=== PATIENT | female | born 1965 | race Two or more races ===

== ENCOUNTER 2017-12-01 05:57 | Inpatient (IN) | payer BC ==
[2017-11-16 16:28] VITALS: BMI 31.9
--- NOTE | 2017-11-30 21:00 | HP ---
Admitting History and Physical - Admission Chief Complaint: Right hip osteoarthritis x years History of Present Illness: 52 year old female presents today in regard to her right hip. Patient has a longstanding history of right hip osteoarthritis. Patient complains of pain, limited ROM, difficulty ambulating and difficulty completing activities of daily living. Patient has failed conservative treatment options including PO medications, activity modification, injections and exercise program. At this point, patient wishes to proceed with surgical intervention - right total hip arthroplasty, MAKOplasty. History Source: Patient - Past Medical History Cardiovascular: Yes: HTN ...LMP Comment: 10 YEARS AGO - Past Surgical History Additional Past Surgical History: See written history and physical. - Smoking History Smoking history: Never smoked Have you smoked in the past 12 months: No - Alcohol/Substance Use Hx Alcohol Use: Yes (FEW TIMES PER WEEK) Home Medications - Allergies Allergies/Adverse Reactions: Allergies Allergy/AdvReac Type Severity Reaction Status Date / Time No Known Allergies Allergy Verified 11/16/17 16:18 - Home Medications Home Medications: Ambulatory Orders Amlodipine Besylate 5 mg PO HS 11/16/17 Cholecalciferol (Vitamin D3) [Vitamin D3] 1,000 unit PO DAILY 11/16/17 Multivit-Min/Iron/Folic/Axe667 [Hair, Skin and Nails Tablet] 1 each PO DAILY 11/28 Ubidecarenone [Co Q-10] 50 mg PO DAILY 11/16/17 Review of Systems - Review of Systems Musculoskeletal: reports: Decreased ROM (right hip), Joint Pain (right hip), Joint Swelling (right hip) Physical Examination Constitutional: Yes: Well Nourished, No Distress Eyes: Yes: Conjunctiva Clear HENT: Yes: Atraumatic, Normocephalic Neck: Yes: Supple Cardiovascular: Yes: Regular Rate and Rhythm Respiratory: Yes: Regular Gastrointestinal: Yes: Soft ...Rectal Exam: Yes: Deferred Musculoskeletal: Yes: Joint Stiffness (right hip), Joint Swelling (right hip) Assessment/Plan 52 year old female presents today in regard to her right hip. Patient has a longstanding history of right hip osteoarthritis. Patient complains of pain, limited ROM, difficulty ambulating and difficulty completing activities of daily living. Patient has failed conservative treatment options including PO medications, activity modification, injections and exercise program. At this point, patient wishes to proceed with surgical intervention. Pros, cons, risks benefits and alternatives of a right total hip arthroplasty, MAKOplasty was discussed at length. Patient confirms her understanding and consents to proceed with a right total hip arthroplasty, MAKOplasty.
[~2017-12-01 05:57] MED LIST: CEFAZOLIN 2 GM/D5W 2 GM/50 ML ML IVPB ONE; CELECOXIB 200 MG CAPSULE PO ONE; GABAPENTIN 300 MG CAPSULE (FP) PO ONE; PANTOPRAZOLE 40 MG TABLET (FP) PO ONE; ROPIVICAINE 0.2%/MORPH PF/KETOROLAC - 51ML DISP.SYRINGE IA ONE; TRANEXAMIC ACID 1000 MG/10 ML VIAL IVPUSH ONE; oxyCODONE HCL 10 MG SUSTAINED ACTING TABLET PO ONE
[2017-12-01] MEDS ORDERED: oxyCODONE HCL 10 MG SUSTAINED ACTING TABLET ONE (06:47)
[2017-12-01] MEDS ORDERED: GABAPENTIN 300 MG CAPSULE (FP) ONE (06:48)
[2017-12-01] MEDS ORDERED: CELECOXIB 200 MG CAPSULE ONE (06:48)
[2017-12-01] MEDS ORDERED: PROPOFOL 20 ML ONE ×3 (07:05→11:19)
[2017-12-01] MEDS ORDERED: SUCCINYLCHOLINE CHLORIDE 200 MG/10 ML VIAL ONE (07:05)
[2017-12-01] MEDS ORDERED: MIDAZOLAM HCL 2 MG/2 ML SINGLE DOSE VIAL ONE ×2 (07:07→07:13)
[2017-12-01] MEDS ORDERED: BUPIVACAINE HCL/PF (5 MG/ML) 30 ML VIAL IJ ONE (07:13)
[2017-12-01] MEDS ORDERED: ePHEDrine SULFATE 50 MG/1 ML AMPULE ONE (07:13)
[2017-12-01] MEDS ORDERED: EPINEPHrine/PF 1 MG/1 ML (1:1,000) AMPULE ONE (07:13)
[2017-12-01] MEDS ORDERED: DEXAMETHASONE SOD PHOSPHATE/PF 10 MG/ML SDV ONE (07:13)
[2017-12-01] MEDS ORDERED: LIDOCAINE 1% P/F 10 MG/ML VIAL ONE (07:33)
[2017-12-01] MEDS ORDERED: PROMETHAZINE HCL 25 MG/1 ML VIAL IVPB PRN (07:51)
[2017-12-01] MEDS ORDERED: ceFAZolin SODIUM 1 GM VIAL IVPB ONE (09:09)
[2017-12-01] MEDS ORDERED: ONDANSETRON 4 MG/2 ML VIAL IVPUSH PRN (11:00)
[2017-12-01] MEDS ORDERED: MAGNESIUM HYDROX 2400MG/30ML ORAL SUSPENSION 30 ML CUP PO PRN (11:00)
[2017-12-01] MEDS ORDERED: MAG HYDROX/AL HYDROX/SIMETH 30 ML UNIT-DOSE CUP PO PRN (11:00)
[2017-12-01] MEDS ORDERED: LACTATED RINGERS SOLUTION 1,000 ML IV SCH (11:00)
[2017-12-01] MEDS ORDERED: ACETAMINOPHEN 1000 MG/100 ML VIAL (NON FORMULARY) IVPB ONE ×3 (11:01→12:15)
--- NOTE | 2017-12-01 11:03 | OP ---
Operative Note - Note: Operative Date: 12/01/17 Pre-Operative Diagnosis: Right hip OA Operation: Right FOSTER ERIN Post-Operative Diagnosis: Same as Pre-op Surgeon: Ralph Flood Glaze Maker: Adelia Davis Anesthesia: Spinal Estimated Blood Loss (mls): 200
[2017-12-01] MEDS ORDERED: KETOROLAC TROMETHAMINE 30 MG/1 ML VIAL IVPUSH SCH (11:15)
[2017-12-01] MEDS ORDERED: KETOROLAC TROMETHAMINE 30 MG/1 ML VIAL ONE (11:56)
[2017-12-01] MEDS ORDERED: traMADol HCL 50 MG TABLET ONE (11:56)
[2017-12-01] MEDS ORDERED: ACETAMINOPHEN INJECTION 100 ML IVPB ONE (11:56)
[2017-12-01] MEDS: oxyCODONE HCL 5 MG TABLET PO PRN (18:33)
[2017-12-01] MEDS: KETOROLAC TROMETHAMINE 30 MG/1 ML VIAL IVPUSH SCH ×2 (18:33→23:53)
[2017-12-01] MEDS: traMADol HCL 50 MG TABLET PO SCH ×2 (18:34→23:52)
[2017-12-01] MEDS: CEFAZOLIN 2 GM/D5W 2 GM/50 ML ML IVPB SCH (18:34)
[2017-12-01] MEDS ORDERED: DEXAMETHASONE SOD PHOSPHATE 10 MG/1 ML VIAL IVPB ONE (20:00)
[2017-12-01] MEDS: amLODIPine BESYLATE 5 MG TABLET (FP) PO SCH (21:26)
[2017-12-01] MEDS: CELECOXIB 200 MG CAPSULE PO SCH (21:26)
[2017-12-01] MEDS: ASCORBIC ACID 500 MG TABLET (FP) PO SCH (21:26)
[2017-12-01] MEDS: GABAPENTIN 300 MG CAPSULE (FP) PO SCH (21:26)
[2017-12-01] MEDS: SENNOSIDES/DOCUSATE COMBO (SENNA PLUS) TABLET (UD) PO SCH (21:26)
[2017-12-02] MEDS: CEFAZOLIN 2 GM/D5W 2 GM/50 ML ML IVPB SCH (01:36)
[2017-12-02] MEDS: traMADol HCL 50 MG TABLET PO SCH ×5 (05:30→23:29)
[2017-12-02] MEDS: KETOROLAC TROMETHAMINE 30 MG/1 ML VIAL IVPUSH SCH ×2 (05:30→12:02)
[2017-12-02] MEDS: oxyCODONE HCL 5 MG TABLET PO PRN ×2 (05:31→09:30)
[2017-12-02] MEDS: ASPIRIN 325 MG TABLET PO SCH (08:00)
[2017-12-02 09:00] LABS: HEMATOCRIT 33.5 % (32.4-45.2); HEMOGLOBIN 11.7 GM/dl (10.7-15.3); MCH 31.9 pg (25.7-33.7); MEAN PLT VOLUME 9.9 fl (7.5-11.1); PLATELET COUNT 229 K/MM3 (134-434); RBC 3.68 M/mm3 (3.60-5.2); RDW 13.1 % (11.6-15.6)
[2017-12-02 09:14] LABS: ANION GAP 7 (8-16); BLOOD UREA NITROGEN 15 mg/dl (7-18); CALCIUM 8.7 mg/dl (8.4-10.2); CHLORIDE 103 mmol/L (98-107); CO2 23 mmol/L (22-28); CREATININE 0.7 mg/dl (0.6-1.3); GLUCOSE,RANDOM 137 mg/dl (74-106); POTASSIUM 4.1 mmol/L (3.5-5.1); SODIUM 133 mmol/L (136-145)
--- NOTE | 2017-12-02 09:35 | PN ---
Progress Note (short form) - Note Progress Note: Anesthesia Post-Op Note Pt s/p right THR with Dr. Flood on 12/01/17. Pt received PNB + Spinal + MAC. Reports pain controlled. OOB to chair and ambulating with PT. Tolerating PO diet. Vital Signs Temperature 98.1 F 12/02/17 06:00 Pulse Rate 68 12/02/17 06:00 Respiratory Rate 18 12/02/17 09:00 Blood Pressure 129/73 12/02/17 06:00 O2 Sat by Pulse Oximetry (%) 95 12/01/17 12:59 Continue ISS. Encourage ambulation. Bowel regimen.
[2017-12-02] MEDS: SENNOSIDES/DOCUSATE COMBO (SENNA PLUS) TABLET (UD) PO SCH ×2 (10:00→22:05)
[2017-12-02] MEDS: GABAPENTIN 300 MG CAPSULE (FP) PO SCH ×2 (10:00→22:05)
[2017-12-02] MEDS: CELECOXIB 200 MG CAPSULE PO SCH ×2 (10:01→22:04)
[2017-12-02] MEDS: PANTOPRAZOLE 40 MG TABLET (FP) PO SCH (10:01)
[2017-12-02] MEDS: ASCORBIC ACID 500 MG TABLET (FP) PO SCH ×2 (10:01→22:05)
[2017-12-02] MEDS: MULTIVITAMINS (DAILY MVI) TABLET (FP) PO SCH (10:01)
--- NOTE | 2017-12-02 17:32 | SPEC ---
DATE OF OPERATION: 12/01/2017 PREOPERATIVE DIAGNOSIS: Right hip osteoarthritis. POSTOPERATIVE DIAGNOSIS: Right hip osteoarthritis. PROCEDURE: Right total hip replacement with MAKOplasty robotic navigation. ATTENDING: Bull Wang MD CLOTH BURLER: NAZANIN Pinon ANESTHESIA: Spinal plus sedation. ESTIMATED BLOOD LOSS: 200 mL COMPLICATIONS: None. DISPOSITION: The patient was transferred to the PACU in stable condition. IMPLANTS USED: [place] Accolade II size 7 femoral component, Zoila Tritanium 54-mm acetabular component with MDM bipolar head ball and liner, MDM inner ceramic head ball size 28 plus 4 mm and 25, 30-mm acetabular screws. INDICATIONS: This is a 52-year-old female who presented to the office complaining of severe right hip pain. She was seen and examined by Dr. Wang and diagnosed with severe right hip osteoarthritis. The patient was initially treated nonoperatively with injections, medications, and physical therapy but continued to have severe right hip pain and ambulatory dysfunction. She was, therefore, indicated for a right total hip replacement with MAKOplasty robotic navigation. The risks, benefits, and alternatives to the surgery were explained to the patient in great detail, and she elected to proceed with the procedure. On the day of surgery, the patient was taken to the operating room and placed on the OR table. Spinal anesthesia was administered by the anesthesiologist. The patient was then positioned in the lateral decubitus position on the table and all bony prominences were padded. An axillary roll was placed. The operative hip was then prepped and draped in the usual sterile fashion and intravenous antibiotics were given for infection prophylaxis. A surgical time-out was then performed with the team, and the patients identity, procedure, side, availability of implants, and the administration of antibiotics were confirmed. An approximately 15-cm longitudinal incision was made through the skin centered on the greater trochanter of the hip. This dissection was carried down through the subcutaneous tissues to the deep fascia. This fascia was then incised and a Cobra was placed around the inferior femoral neck. Electrocautery was used to reflect the anterior 40% of the gluteus medius and minimus starting at the musculotendinous junction and leaving a cuff for closure. This was reflected to reveal the capsule of the hip joint. An anterior capsulectomy was performed and the femoral head and neck were visualized. Grade 4 changes were noted diffusely throughout the joint. At this point, three small stab incisions were made superior to the main incision along the iliac crest. Three self-drilling Steinmann pins were then placed and the MVERSE pelvic array was attached. Reference points on the limb were then entered into the robotic device and the limb length deficiency, offset, and femoral neck resection level were then calculated by the software. The hip was then dislocated with traction and external rotation. An oscillating saw was used to make the femoral neck cut at the level previously templated, and the femoral head was removed. Attention was then turned to the acetabulum. Retractors were then placed around the acetabulum and the labrum was removed. An acetabular checkpoint pin and the MVERSE software were used to register the contours of the acetabulum. The acetabulum was then reamed in a single stage to the preoperatively templated size using the Dalton robotic arm. The appropriately sized cup was then impacted and had solid fixation as well as the preset inclination and version of 40 and 20 degrees, respectively. A polyethylene liner was then placed in the cup. Attention was then turned back to the femur, which was externally rotated for improved visualization. A femoral neck elevator was used to present the femoral neck cut, a box osteotome was used to enter the femoral canal, and a canal finder was used to go down the femoral shaft. The Dalton broaches were used sequentially until the optimal scratch fit was achieved. This correlated with the preoperatively templated size. From here, several different offset head and neck configurations were tested until excellent stability and length were obtained. These measurements were quantified using the MVERSE software. All trial components were then removed, the femur was copiously irrigated, and the final components were placed. Leg length and stability were checked again and found to be excellent. Irrigation was performed again. Wound closure was started by repairing the abductor muscles with a no. 2 FiberWire stitch in a Krackow configuration passed through bone tunnels in the greater trochanter and tied over a bony bridge. This repair was then reinforced with a 0 V-Loc 180 barbed suture. Next, no. 1 Polysorb and 0 V-Loc 180 were used to close the fascia. The deep subcutaneous tissue was closed with no. 1 Polysorb sutures, and 2-0 Polysorb was used for the superficial subcutaneous tissue. The skin was closed using both 3-0 V-Loc 90 suture in a running subcuticular fashion and SwiftSet skin adhesive. The Dalton array and pins were removed from the iliac crest and the stab incision sites were irrigated and closed with 4-0 Polysorb sutures and SwiftSet skin adhesive. Once this was completed, a sterile dressing was applied. The patient was then awakened and taken to the PACU in stable condition. ADDENDUM: After final implants were placed, a 3-minute dilute Betadine lavage was performed. Following this, the wound was thoroughly irrigated with normal saline, and wound closure was begun. BULL WANG M.D. [id number]
--- NOTE | 2017-12-02 22:00 | PN ---
Progress Note (short form) - Note Progress Note: Pt seen and examined. Doing well. AVSS Selected Entries 12/02/17 14:00 Temperature 98.0 F Pulse Rate 68 Respiratory 17 Rate Blood Pressure 130/70 O2 Sat by Pulse 98 Oximetry (%) Laboratory Tests 12/02/17 12/02/17 08:00 08:47 WBC 8.0 Hgb 11.7 Hct 33.5 Plt Count 229 Sodium 133 L Potassium 4.1 Chloride 103 Carbon Dioxide 23 Anion Gap 7 L BUN 15 Creatinine 0.7 Creat Clearance w eGFR > 60 Random Glucose 137 H Calcium 8.7 Gen: NAD RLE: c/d/i, NVID A/P s/p R ERIN D/C in AM after PT
[2017-12-02] MEDS: amLODIPine BESYLATE 5 MG TABLET (FP) PO SCH (22:05)
--- NOTE | 2017-12-02 22:12 | DS ---
Physical Examination Vital Signs: Vital Signs Temperature 98.0 F 12/02/17 14:00 Pulse Rate 68 12/02/17 14:00 Respiratory Rate 17 12/02/17 14:00 Blood Pressure 130/70 12/02/17 14:00 O2 Sat by Pulse Oximetry (%) 98 12/02/17 14:00 Labs: CBC, BMP 12/02/17 08:00 12/02/17 08:47 Discharge Summary Reason For Visit: RIGHT HIP OSTEOARTHRITIS Current Active Problems Osteoarthritis of right hip (Acute) Procedures: Principal: right ERIN [facility] Course: Admitted for elective surgery. Procedure performed without complications. Pt received postoperative antibiotic prophylaxis and DVT ppx. Ambulated with physical therapy. Stable for discharge home with outpatient followup. Condition: Stable - Instructions Diet, Activity, Other Instructions: Dr Flood - Hip Replacement Instructions Keep the Aquacel dressing on until removed by Dr. Flood in 10-14 days - it is antibacterial and waterproof and you can shower with it on. Call the office for a follow-up appointment with Dr. Flood on TuesdayDecember 16. [phone] Dr[address] Flood will be out of town next week but his partners, Drs. Leo and Ran will be in the office covering if there are any issues. Take one Aspirin 325mg daily for 6 weeks to prevent blood clots in your legs. Take one Pantoprazole 40mg daily for 6 weeks to protect against heartburn and ulcers. Take Cephalexin (antibiotic) 3x/day for 10 days to help prevent skin infection. Take Celebrex 200mg twice daily for 30 days to reduce swelling and inflammation. Take a multivitamin, stool softener and extra Vitamin C supplement daily. For pain: *Mild pain (1-3/10): Take 1 Tramadol tablet every 4 hours as needed. Moderate pain (4-6/10): Take 1 Tramadol tablet and 1 Percocet tablet every 4 hours as needed. Severe pain (7-10/10): Take 1 Tramadol tablet and 2 Percocet tablets every 4 hours as needed. Activity: You can put as much weight on the operative leg as you want. For the first 6 weeks, all you need to do is walk around the house, go up/down stairs, and sit down/get up. After 6 weeks when everything is healed (and bone has grown into the implant) you will be sent for more intensive outpatient physical therapy. Always use a walker or cane for balance and to prevent falls. Expect to see swelling / bruising from the operative site all the way down to your toes. Wear the Compression stocking on the operative side during the day to minimize how much swelling there is in your foot/ankle. Don't wear the stocking at night. You don't have to wear the stocking on the other side. Disposition: VNS/HOME HEALTH CARE - Home Medications Comprehensive Discharge Medication List: Ambulatory Orders Amlodipine Besylate 5 mg PO HS 11/16/17 Cholecalciferol (Vitamin D3) [Vitamin D3] 1,000 unit PO DAILY 11/16/17 Multivit-Min/Iron/Folic/Xfe610 [Hair, Skin and Nails Tablet] 1 each PO DAILY 11/28 Ubidecarenone [Co Q-10] 50 mg PO DAILY 11/16/17 Ascorbic Acid [Vitamin C -] 500 mg PO BID tablet 12/02/17 Aspirin [ASA -] 325 mg PO DAILY@0800 tablet 12/02/17 Celecoxib [CeleBREX -] 200 mg PO BID #60 capsule 12/02/17 Cephalexin Monohydrate [Keflex -] 500 mg PO TID #30 capsule 12/02/17 Oxycodone HCl/Acetaminophen [Percocet 5-325 mg Tablet] 1 - 2 tab PO Q4H PRN #60 tablet MDD 10 12/02/17 Pantoprazole Sodium [Protonix -] 40 mg PO DAILY #40 tablet.ec 12/02/17 Sennosides/Docusate Sodium [Pericolace -] 1 tablet PO BID tablet 12/02/17 traMADol HCL [Ultram -] 50 mg PO Q4H PRN #42 tablet MDD 6 12/02/17
[2017-12-03] MEDS: traMADol HCL 50 MG TABLET PO SCH ×2 (05:57→10:50)
[2017-12-03] MEDS: ASPIRIN 325 MG TABLET PO SCH (08:11)
[2017-12-03 09:17] LABS: HEMATOCRIT 31.3 % (32.4-45.2); HEMOGLOBIN 10.8 GM/dl (10.7-15.3); MCH 31.5 pg (25.7-33.7); MCHC 34.3 g/dl (32.0-36.0); MEAN CELL VOLUME 91.7 fl (80-96); MEAN PLT VOLUME 9.7 fl (7.5-11.1); PLATELET COUNT 212 K/MM3 (134-434); RBC 3.42 M/mm3 (3.60-5.2); RDW 13.3 % (11.6-15.6); WHITE BLOOD COUNT 7.2 K/mm3 (4.0-10.8)
[2017-12-03] MEDS: SENNOSIDES/DOCUSATE COMBO (SENNA PLUS) TABLET (UD) PO SCH (09:22)
[2017-12-03] MEDS: PANTOPRAZOLE 40 MG TABLET (FP) PO SCH (09:23)
[2017-12-03] MEDS: GABAPENTIN 300 MG CAPSULE (FP) PO SCH (09:23)
[2017-12-03] MEDS: CELECOXIB 200 MG CAPSULE PO SCH (09:23)
[2017-12-03] MEDS: MULTIVITAMINS (DAILY MVI) TABLET (FP) PO SCH (09:23)
[2017-12-03] MEDS: ASCORBIC ACID 500 MG TABLET (FP) PO SCH (09:24)
[2017-12-03 09:39] VITALS: BP 148/82; PULSE 72; TEMP 97.9
--- NOTE | 2017-12-05 14:49 | PATH ---
Surgical Pathology Report Patient Name: TAHIR BECERRA Med. Rec. #: [id number] /Age/Gender: 1965 (Age: 52) / F Account: [id number] Location: [facility] MED-SURG Taken: 12/01/2017 Received: 12/01/2017 Reported: 12/05/2017 Physicians: Ralph Flood M.D. Specimen(s) Received RIGHT FEMORAL HEAD Clinical History Right hip osteoarthritis Final Diagnosis FEMORAL HEAD, RIGHT, TOTAL HIP REPLACEMENT: DEGENERATIVE JOINT DISEASE. Electronically Signed Magdalena Mosley M.D. Gross Description Received in formalin, labeled "femoral head right," is a 5.0 x 5.0 x 3.8 cm. femoral head with a 0.8 cm in length portion of femoral neck attached. The margin of resection is smooth. There is a 4.3 cm greatest dimension area of eburnation present. The remaining articular surface is haddad-yellow and diffusely nodular and granular. The underlying trabecular bone is yellow and hard. A registered representative section is submitted in one cassette, following decalcification. /12/02/2017 [facility]12/02/2017
== END 2017-12-03 11:10 | disposition home health service (06) | DRG 470 ==
LOC: FM/S 05:57
PROVIDERS: ADMIT Student in an Organized Health Care Education/Training Program; ATTEND Student in an Organized Health Care Education/Training Program
PROC: 8E0W0CZ Robotic Assisted Procedure of Trunk Region, Open Approach (ICD-10-PCS; 2017-12-01)
PROC: 0SR903A Replacement of Right Hip Joint with Ceramic Synthetic Substitute, Uncemented, Open Approach (ICD-10-PCS; principal; 2017-12-01 08:00)
DX: M16.11 Unilateral primary osteoarthritis, right hip (principal)
CPT/HCPCS: 36415; 73523-TC-FY; 80048; 85027; 88304-TC; 88311-TC; 94760; 97116-GP; 97162-GP; J0131; J1100